=== PATIENT | male | born 1960 | race Caucasian/White ===

== ENCOUNTER 2019-11-08 08:08 | Emergency (ER) | payer SELFPAY ==
[~2019-11-08] VITALS: Ht 182.9 cm; Wt 84.1 kg
[2019-11-08 08:14] VITALS: TEMP 97.5
[2019-11-08] MEDS ORDERED: FLEXERIL 1010 MG/TAB PO (09:31)
[2019-11-08 09:49] VITALS: BP 154/74; PULSE 81
== END 2019-11-08 09:45 | disposition home or self-care (01) ==
LOC: COL.ER 08:08
DX: S20.211A Contusion of right front wall of thorax, initial encounter (principal); S30.1XXA Contusion of abdominal wall, initial encounter; V89.2XXA Person injured in unspecified motor-vehicle accident, traffic, initial encounter
CPT/HCPCS: Q9967